=== PATIENT | female | born 1965 | race African-American/Black ===

== ENCOUNTER 2017-09-21 07:00 | Emergency (ER) | payer MEDICAID ==
[~2017-09-21] VITALS: Ht 157.5 cm; Wt 90.0 kg
[~2017-09-21 07:00] MED LIST: CODE15 PO; DIAZ5 PO; GABA300C3 PO; ULTR50TA PO; ZOLO50TA PO
[2017-09-21 07:04] VITALS: BP 142/88; PULSE 83; RESP 20; TEMP 98.3; O2SAT 98
[2017-09-21] MEDS ORDERED: ACETAMINOPHEN/HYDROcodone 325 MG/5 MG TAB PO ONE (07:45)
--- NOTE | 2017-09-21 08:01 | RADRPT ---
EXAM DATE/TIME: 09/21/2017 07:51 [place] COMPARISON: No previous studies available for comparison. INDICATIONS : Lower back pain, fall. MEDICAL HISTORY : None. SURGICAL HISTORY : None. ENCOUNTER: Initial ACUITY: 3 days PAIN SCORE: 10/10 LOCATION: Left lower back FINDINGS: Two view examination was performed. There are five non-rib bearing vertebral bodies. The vertebral bodies are in normal alignment without evidence of subluxation or scoliosis. The disc spaces are jorge ntained. The pedicles are intact. Bony mineralization is normal. No fracture is identified. CONCLUSION: 1. No acute fracture or subluxation. Allen Mejia MD on September 21, 2017 at 7:58 Board Certified Radiologist. This report was verified electronically.
[2017-09-21] MEDS ORDERED: HYDR-3516 PO (08:26)
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
[2017-09-21 08:40] VITALS: RESP 18
[2017-09-21] MEDS ORDERED: IBUP-232 PO (09:21)
== END 2017-09-21 09:30 | disposition home or self-care (01) ==
LOC: NEPE 07:00
DX: M54.5 Low back pain (principal); G89.29 Other chronic pain; J45.909 Unspecified asthma, uncomplicated
CPT/HCPCS: 72100; 99283